=== PATIENT | male | born 1945 | race African-American/Black ===

== ENCOUNTER 2016-06-10 15:16 | Inpatient (IN) | payer OTHER ==
[2016-06-10 17:00] VITALS: BMI 22.3
--- NOTE | 2016-06-10 17:52 | HP ---
[id number] 4d 3 Anxiety: 4-Mod. Anxious/Guarded Agitation: 4-Moderately Restless Paroxysmal Sweats: 1-Minimal Palms Moist Orientation: 3-Disoriented Date>2 days Tacttile Disturbances: 0-None Auditory Disturbances: 0-None Visual Disturbances: 0-None Headache: 0-None Present CIWA-Ar Total Score: 16 Admission ROS S - HPI Chief Complaint: withdrawal sx Allergies/Adverse Reactions: Allergies Allergy/AdvReac Type Severity Reaction Status Date / Time No Known Allergies Allergy Verified 06/10/16 18:45 History of Present Illness: 70 years old male with long history of alcohol dependence, has hypertension denies mental illness is admitted to detox Exam Limitations: No Limitations - Ebola screening Have you traveled outside of the country in the last 21 days: No Have you had contact with anyone from an Ebola affected area: No Have you been sick,other than usual withdrawal symptoms: No Do you have a fever: No - Review of Systems Constitutional: Chills, Loss of Appetite, Changes in sleep, Unintentional Wgt. Loss EENT: reports: Dental Problems (upper full denture), Other (eye glasses) Respiratory: reports: No Symptoms reported Cardiac: reports: No Symptoms Reported GI: reports: Poor Appetite, Poor Fluid Intake, Indigestion, Abdominal cramping : reports: No Symptoms Reported Musculoskeletal: reports: Back Pain, Joint Pain, Muscle Pain, Neck Pain Integumentary: reports: Dryness Neuro: reports: Seizure (last episode "long time ago"), Tremors Endocrine: reports: No Symptoms Reported Hematology: reports: No Symptoms Reported Psychiatric: reports: Judgement Intact, Depressed Other Systems: Reviewed and Negative Patient History - Patient Medical History Hx Anemia: Yes (IN THE PAST) Hx Asthma: No Hx Chronic Obstructive Pulmonary Disease (COPD): No Hx Cancer: No Hx Cardiac Disorders: Yes (cardiac catheterization;Hx heart murmur) Hx Congestive Heart Failure: No Hx Hypertension: Yes (ON MEDS BUT NONCOMPLIANT. DID NOT PICK IT UP FROM PHARMACY.) Hx Hypercholesterolemia: No Hx Pacemaker: No HX Cerebrovascular Accident: No Hx Seizures: Yes (alcohol related-last episode was a year ago) Hx Dementia: Yes (viviana 0.308) Hx Diabetes: No Hx Gastrointestinal Disorders: Yes (GERD) Hx Liver Disease: Yes (cirrhosis,hepatitis c,ca of liver s/p partial hepatectomy ) Hx Genitourinary Disorders: No Hx Sexually Transmitted Disorders: Yes (gonorrhea) Hx Renal Disease (ESRD): No Hx Thyroid Disease: No Hx Human Immunodeficiency Virus (HIV): No (NEGATIVE HX) Hx Hepatitis C: Yes (NOT TREATED) Hx Depression: Yes Hx Suicide Attempt: No (DENIES) Hx Bipolar Disorder: No Hx Schizophrenia: No - Patient Surgical History Past Surgical History: Yes Hx Neurologic Surgery: No Hx Cataract Extraction: No Hx Cardiac Surgery: No Hx Lung Surgery: No Hx Breast Surgery: No Hx Breast Biopsy: No Hx Abdominal Surgery: Yes (partial hepatectomy in 2008) Hx Appendectomy: No Hx Cholecystectomy: No Hx Genitourinary Surgery: No Hx Orthopedic Surgery: No Other Surgical History: liver biopsy in 2009/umbilical hernia repair Anesthesia Reaction: No - PPD History Previous Implant?: Yes Documented Results: Negative w/proof Implanted On Prior [facility] [place]mission?: Yes Date: 01/18/16 Results: 0 mm PPD to be Administered?: No - Smoking Cessation Smoking history: Former smoker Have you smoked in the past 12 months: No Aproximately how many cigarettes per day: 0 If you are a former smoker, when did you quit?: 1985 Hx Chewing Tobacco Use: No Initiated information on smoking cessation: No - Substance & Tx. History Hx Alcohol Use: Yes Hx Substance Use: No Substance Use Type: Alcohol Hx Substance Use Treatment: Yes - Substances Abused Alcohol Route: Oral Frequency: Daily Amount used: 4 pints volka Age of first use: 17 Date of Last Use: 06/10/16 Family Disease History - Family Disease History Family Disease History: Heart Disease: Father Admission Physical Exam [facility] - Vital Signs Vital Signs: Vital Signs - 24 hr 06/10/16 16:57 Temperature 97.5 F L Pulse Rate 82 Respiratory 18 Rate Blood Pressure 125/73 - Physical General Appearance: Yes: Appropriately Dressed, Moderate Distress, Alcohol on Breath, Thin, Tremorous, Irritable, Sweating, Anxious HEENTM: Yes: Hearing grossly Normal, Normal ENT Inspection, Normocephalic, Normal Voice Respiratory: Yes: Chest Non-Tender, Lungs Clear, Normal Breath Sounds, No Respiratory Distress, No Accessory Muscle Use Neck: Yes: Supple, Trachea in good position Breast: Yes: Breasts Symetrical Cardiology: Yes: Regular Rhythm, Regular Rate, S1, S2, Murmur Abdominal: Yes: Non Tender, Soft Genitourinary: Yes: Within Normal Limits Back: Yes: Normal Inspection Musculoskeletal: Yes: full range of Motion, Gait Steady Extremities: Yes: Normal Range of Motion, Non-Tender, Tremors Neurological: Yes: Alert, Motor Strength 5/5, Normal Response, Depressed Affect Integumentary: Yes: Warm Lymphatic: Yes: Within Normal Limits - Diagnostic (1) Alcohol dependence with uncomplicated withdrawal Current Visit: Yes Status: Acute (2) GERD (gastroesophageal reflux disease) Current Visit: Yes Status: Acute Qualifiers: Esophagitis presence: without esophagitis Qualified Code(s): K21.9 - Gastro-esophageal reflux disease without esophagitis (3) HTN (hypertension) Current Visit: Yes Status: Acute Qualifiers: Hypertension type: essential hypertension Qualified Code(s): I10 - Essential (primary) hypertension (4) Hepatitis C carrier Current Visit: Yes Status: Chronic (5) liver cancer Current Visit: Yes Status: Resolved (6) Weight loss Current Visit: Yes Status: Acute (7) Poor dentition Current Visit: Yes Status: Chronic (8) Dry skin Current Visit: Yes Status: Acute Cleared for Admission [facility] - Detox or Rehab [facility] Level of Care: Medically Managed Detox Regimen/Protocol: Librium [facility] Breath Alcohol Content Breath Alcohol Content: 0.308 Urine Drug Screen - Results Drug Screen Negative: No Urine Drug Screen Results: THC-Marijuana
[2016-06-10] MEDS ORDERED: LOPERAMIDE HCL 2 MG CAPSULE PO PRN (18:01)
[2016-06-10] MEDS ORDERED: MAGNESIUM HYDROX 2400MG/30ML ORAL SUSPENSION 30 ML CUP PO PRN (18:01)
[2016-06-10] MEDS ORDERED: MAGNESIUM CITRATE 300 ML BOTTLE PO PRN (18:01)
[2016-06-10] MEDS ORDERED: P-EPHED 60MG/TRIPROLIDI 2.5MG TABLET PO PRN (18:01)
[2016-06-10] MEDS ORDERED: guaiFENesin/D-METHORPHAN HB 10 ML UNIT-DOSE CUPS PO PRN (18:01)
[2016-06-10] MEDS ORDERED: MENTHOL/PHENOL 1 EACH UD MM PRN (18:01)
[2016-06-10] MEDS ORDERED: hydrOXYzine PAMOATE 50 MG CAPSULE (FP) PO PRN (18:01)
[2016-06-10] MEDS ORDERED: MAG HYDROX/AL HYDROX/SIMETH 30 ML UNIT-DOSE CUP PO PRN (18:01)
[2016-06-10] MEDS ORDERED: COLLOIDAL OATMEAL 1 BAR EACH TP PRN (18:04)
[2016-06-10] MEDS ORDERED: chlordiazePOXIDE HCL 25 MG CAPSULE PO ONE (19:15)
[2016-06-10] MEDS: chlordiazePOXIDE HCL 25 MG CAPSULE PO SCH (22:35)
[2016-06-10] MEDS: THIAMINE HCL 100 MG TABLET (FP) PO SCH (22:35)
[2016-06-10] MEDS: RANITIDINE HCL 150 MG TABLET (FP) PO SCH (22:35)
[2016-06-10] MEDS: diphenhydrAMINE HCL 50 MG CAPSULE PO PRN (22:35)
[2016-06-10 22:37] LABS: URINE APPEARANCE CLEAR; URINE BILIRUBIN NEGATIVE (NEGATIVE); URINE COLOR YELLOW; URINE GLUCOSE (UA) NEGATIVE (NEGATIVE); URINE KETONE NEGATIVE (NEGATIVE); URINE LEUK ESTERASE NEGATIVE (NEGATIVE); URINE NITRITE NEGATIVE (NEGATIVE); URINE PROTEIN NEGATIVE (NEGATIVE); URINE UROBILINOGEN NEGATIVE E.U./dl (0.2-1.0)
[2016-06-10 22:39] LABS: URINE BLOOD 1+ (NEGATIVE)
[2016-06-10 22:40] LABS: URINE WBC 1 /hpf (3-5)
[2016-06-10] MEDS: MINERAL OIL/PETROLAT/WATER TOPICAL CREAM 454 GM JAR TP SCH (22:40)
[2016-06-11] MEDS: chlordiazePOXIDE HCL 25 MG CAPSULE PO SCH ×4 (06:13→22:43)
[2016-06-11] MEDS: PRENATAL VITAMINS W/ FOLIC ACID TABLET (FP) PO SCH (10:23)
[2016-06-11] MEDS: RANITIDINE HCL 150 MG TABLET (FP) PO SCH ×2 (10:23→22:43)
[2016-06-11 10:37] LABS: MCH 30.7 pg (25.7-33.7); MCHC 33.5 g/dl (32.0-35.9); MEAN CELL VOLUME 91.8 fl (80-96); MEAN PLT VOLUME 7.8 fl (7.5-11.1); PLATELET COUNT 212 K/MM3 (134-434); RDW 22.1 % (11.9-15.9); WHITE BLOOD COUNT 4.5 K/mm3 (4.0-10.0)
[2016-06-11 11:22] LABS: ALBUMIN 3.4 g/dl (3.4-5.0); ALK PHOS 164 U/L (45-117); ANION GAP 13 (8-16); CALCIUM 8.3 mg/dL (8.5-10.1); CO2 28 mmol/L (21-32); GLUCOSE,RANDOM 106 mg/dL (74-106); SGOT/AST 192 U/L (15-37); SGPT/ALT 57 U/L (12-78); TOT PROT 7.6 g/dl (6.4-8.2)
--- NOTE | 2016-06-11 11:30 | EKG ---
Test Reason : Blood Pressure : / mmHG Vent. Rate : 100 BPM Atrial Rate : 100 BPM P-R Int : 128 ms QRS Dur : 088 ms QT Int : 368 ms P-R-T Axes : 082 -02 263 degrees QTc Int : 474 ms SINUS RHYTHM WITH PREMATURE ATRIAL COMPLEXES MODERATE VOLTAGE CRITERIA FOR LVH, MAY BE NORMAL VARIANT PROLONGED QT ABNORMAL ECG WHEN COMPARED WITH ECG OF 10-JUN-2016 20:00, PREMATURE ATRIAL COMPLEXES ARE NOW PRESENT Confirmed by NANCY POOLE, SUPA ([id number]) on 06/11/2016 11:30:37 AM Referred By: Confirmed By:SUPA CRUZ MD
--- NOTE | 2016-06-11 11:42 | PN ---
S CIWA - CIWA Score Nausea/Vomitin Muscle Tremors: 4-Moderate,w/Arms Extend Anxiety: 4-Mod. Anxious/Guarded Agitation: 4-Moderately Restless Paroxysmal Sweats: 3 Orientation: 0-Oriented Tacttile Disturbances: 1-Very Mild Itch/Numbness Auditory Disturbances: 0-None Visual Disturbances: 0-None Headache: 1-Very Mild CIWA-Ar Total Score: 20 BHS Progress Note (SOAP) Subjective: nausea, sweats, interrupted sleep, anxiety, tremors Objective: 06/11/16 11:40 Vital Signs - 8 hr 06/11/16 06/11/16 06:38 09:34 Temperature 96.7 F L 95.8 F L Pulse Rate 72 75 Respiratory 18 18 Rate Blood Pressure 176/112 141/97 Laboratory Tests 06/10/16 06/11/16 06/11/16 21:30 07:00 07:00 WBC 4.5 RBC 3.91 L Hgb 12.0 Hct 35.9 MCV 91.8 MCHC 33.5 RDW 22.1 H D Plt Count 212 MPV 7.8 Sodium 136 Potassium 3.4 L Chloride 95 L Carbon Dioxide 28 Anion Gap 13 BUN 8 D Creatinine 1.0 Creat Clearance w eGFR > 60 Random Glucose 106 Calcium 8.3 L Total Bilirubin 1.0 AST 192 H ALT 57 Alkaline Phosphatase 164 H Total Protein 7.6 Albumin 3.4 D Urine Color Yellow Urine Appearance Clear Urine pH 6.0 Ur Specific [place] 1.005 Urine Protein Negative Urine Glucose (UA) Negative Urine Ketones Negative Urine Blood 1+ H Urine Nitrite Negative Urine Bilirubin Negative Urine Urobilinogen Negative Ur Leukocyte Esterase Negative Urine RBC None Urine WBC 1 hypokalemia, elevated bp Assessment: 06/11/16 11:41 withdrawal sx, hypokalemia Plan: cont detox, fluids, supplement k repeat chem
[2016-06-11 11:49] LABS: ANISOCYTOSIS 2+; HYPOCHROMIA 1+; MICROCYTOSIS 2+
--- NOTE | 2016-06-11 12:30 | EKG ---
Test Reason : Blood Pressure : / mmHG Vent. Rate : 078 BPM Atrial Rate : 078 BPM P-R Int : 136 ms QRS Dur : 100 ms QT Int : 458 ms P-R-T Axes : 073 -07 257 degrees QTc Int : 522 ms NORMAL SINUS RHYTHM WITH SINUS ARRHYTHMIA MODERATE VOLTAGE CRITERIA FOR LVH, MAY BE NORMAL VARIANT T WAVE ABNORMALITY, CONSIDER INFEROLATERAL ISCHEMIA PROLONGED QT ABNORMAL ECG WHEN COMPARED WITH ECG OF 07-FEB-2013 11:43, VENT. RATE HAS INCREASED BY 29 BPM T WAVE INVERSION NOW EVIDENT IN INFERIOR LEADS T WAVE INVERSION NOW EVIDENT IN ANTEROLATERAL LEADS QT HAS LENGTHENED Confirmed by NANCY POOLE, SUPA ([id number]) on 06/11/2016 12:30:01 PM Referred By: Confirmed By:SUPA CRUZ MD
--- NOTE | 2016-06-11 13:09 | CONSULT ---
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 Substance Abuse History: - Smoking Cessation. Smoking history: Former smoker. Have you smoked in the past 12 months: No. Aproximately how many cigarettes per day: 0. If you are a former smoker, when did you quit?: 1985. Hx Chewing Tobacco Use: No. Initiated information on smoking cessation: No. - Substance & Tx. History. Hx Alcohol Use: Yes. Hx Substance Use: No. Substance Use Type : Alcohol. Hx Substance Use Treatment: Yes. - Substances Abused. Alcohol. Route: Oral. Frequency: Daily. Amount used: 4 pints volka. Age of first use : 17. Date of Last Use: 06/10/16. Confirmed by patient. Medical History: Significant for GERD,hypertension,anemia,Ca of liver,hepatitis C,withdrawal seizures,umbilical herniorraphy and a history of past treatment for gonorrhea. Psychiatric History: Patient denies. Physical/Sexual Abuse/Trauma History: Patient denies. Additional Comment: Urine Drug Screen Results: THC-Marijuana.Noted. Mental Status Exam - Mental Status Exam Alert and Oriented to: Time, Place, Person Cognitive Function: Good Patient Appearance: Disheveled Mood: Hopeful Affect: Appropriate, Normal Range Patient Behavior: Fatigued, Appropriate, Cooperative Speech Pattern: Clear, Appropriate Voice Loudness: Normal Thought Process: Goal Oriented Thought Disorder: Not Present Hallucinations: Denies Suicidal Ideation: Denies Homicidal Ideation: Denies Insight/Judgement: Fair Sleep: Fair Appetite: Good Muscle strength/Tone: Normal Gait/Station: Normal Psychiatric Findings - Problem List ([place] 1, 2,3) (1) Alcohol dependence with uncomplicated withdrawal Current Visit: Yes Status: Acute (2) GERD (gastroesophageal reflux disease) Current Visit: Yes Status: Chronic Qualifiers: Esophagitis presence: without esophagitis Qualified Code(s): K21.9 - Gastro-esophageal reflux disease without esophagitis (3) HTN (hypertension) Current Visit: Yes Status: Chronic Qualifiers: Hypertension type: essential hypertension Qualified Code(s): I10 - Essential (primary) hypertension (4) Hepatitis C carrier Current Visit: Yes Status: Chronic (5) liver cancer Current Visit: Yes Status: Resolved (6) s/p umbilical herniorrhaphy Current Visit: No Status: Chronic (7) Seizure disorder Current Visit: No Status: Chronic (8) Cannabis dependence, uncomplicated Current Visit: Yes Status: Acute (9) Cirrhosis of liver Current Visit: Yes Status: Chronic (10) History of anemia Current Visit: Yes Status: Suspected - Initial Treatment Plan Initial Treatment Plan: Psychoeducation.Detoxification.Observation.
[2016-06-11] MEDS: POTASSIUM CHLORIDE TABS 20 MEQ TABLET.ER (FP) PO SCH ×2 (13:38→22:43)
[2016-06-11] MEDS: METOPROLOL SUCCINATE 25 MG TAB.SR.24H (FP) PO SCH (14:01)
[2016-06-11] MEDS: ENALAPRIL MALEATE 2.5 MG TABLET (FP) PO SCH (14:01)
[2016-06-11] MEDS: chlordiazePOXIDE HCL 25 MG CAPSULE PO PRN (14:21)
[2016-06-11] MEDS: ACETAMINOPHEN 325 MG TABLET (FP) PO PRN (14:22)
[2016-06-11] MEDS: THIAMINE HCL 100 MG TABLET (FP) PO SCH (22:43)
[2016-06-11] MEDS: diphenhydrAMINE HCL 50 MG CAPSULE PO PRN (22:44)
[2016-06-11] MEDS: MINERAL OIL/PETROLAT/WATER TOPICAL CREAM 454 GM JAR TP SCH (22:56)
[2016-06-12] MEDS: chlordiazePOXIDE HCL 25 MG CAPSULE PO SCH ×3 (05:53→17:40)
[2016-06-12 10:14] LABS: ALBUMIN 3.1 g/dl (3.4-5.0); ANION GAP 9 (8-16); CALCIUM 8.2 mg/dL (8.5-10.1); CO2 30 mmol/L (21-32); GLUCOSE,RANDOM 80 mg/dL (74-106)
[2016-06-12 10:19] LABS: ALK PHOS 148 U/L (45-117); CREATININE 0.8 mg/dL (0.7-1.3); SGOT/AST 113 U/L (15-37); SGPT/ALT 41 U/L (12-78); TOT PROT 6.9 g/dl (6.4-8.2)
[2016-06-12] MEDS: PRENATAL VITAMINS W/ FOLIC ACID TABLET (FP) PO SCH (10:28)
[2016-06-12] MEDS: METOPROLOL SUCCINATE 25 MG TAB.SR.24H (FP) PO SCH (10:28)
[2016-06-12] MEDS: ENALAPRIL MALEATE 2.5 MG TABLET (FP) PO SCH (10:28)
[2016-06-12] MEDS: RANITIDINE HCL 150 MG TABLET (FP) PO SCH ×2 (10:28→22:29)
[2016-06-12] MEDS: POTASSIUM CHLORIDE TABS 20 MEQ TABLET.ER (FP) PO SCH ×2 (10:28→22:29)
--- NOTE | 2016-06-12 12:53 | PN ---
S CIWA - CIWA Score Nausea/Vomitin Muscle Tremors: 4-Moderate,w/Arms Extend Anxiety: 4-Mod. Anxious/Guarded Agitation: 4-Moderately Restless Paroxysmal Sweats: 3 Orientation: 0-Oriented Tacttile Disturbances: 1-Very Mild Itch/Numbness Auditory Disturbances: 0-None Visual Disturbances: 0-None Headache: 1-Very Mild CIWA-Ar Total Score: 20 BHS Progress Note (SOAP) Subjective: nasuea, sweats, interrupted sleep, anxiety, tremors Objective: 06/12/16 12:51 Vital Signs - 8 hr 06/12/16 06/12/16 06:35 10:11 Temperature 99.1 F 97.8 F Pulse Rate 80 98 H Respiratory 18 18 Rate Blood Pressure 154/96 125/92 Laboratory Tests 06/10/16 06/11/16 06/11/16 21:30 07:00 07:00 WBC 4.5 RBC 3.91 L Hgb 12.0 Hct 35.9 MCV 91.8 MCHC 33.5 RDW 22.1 H D Plt Count 212 MPV 7.8 Hypochromic-Microcytic 1+ Anisocytosis 2+ Microcytosis 2+ Sodium 136 Potassium 3.4 L Chloride 95 L Carbon Dioxide 28 Anion Gap 13 BUN 8 D Creatinine 1.0 Creat Clearance w eGFR > 60 Random Glucose 106 Calcium 8.3 L Total Bilirubin 1.0 AST 192 H ALT 57 Alkaline Phosphatase 164 H Total Protein 7.6 Albumin 3.4 D Urine Color Yellow Urine Appearance Clear Urine pH 6.0 Ur Specific [place] 1.005 Urine Protein Negative Urine Glucose (UA) Negative Urine Ketones Negative Urine Blood 1+ H Urine Nitrite Negative Urine Bilirubin Negative Urine Urobilinogen Negative Ur Leukocyte Esterase Negative Urine RBC None Urine WBC 1 RPR Titer 06/11/16 06/12/16 07:00 07:15 WBC RBC Hgb Hct MCV MCHC RDW Plt Count MPV Hypochromic-Microcytic Anisocytosis Microcytosis Sodium 133 L Potassium 4.0 Chloride 94 L Carbon Dioxide 30 Anion Gap 9 BUN 9 Creatinine 0.8 Creat Clearance w eGFR > 60 Random Glucose 80 D Calcium 8.2 L Total Bilirubin 2.0 H D AST 113 H D ALT 41 D Alkaline Phosphatase 148 H Total Protein 6.9 Albumin 3.1 L Urine Color Urine Appearance Urine pH Ur Specific [place] Urine Protein Urine Glucose (UA) Urine Ketones Urine Blood Urine Nitrite Urine Bilirubin Urine Urobilinogen Ur Leukocyte Esterase Urine RBC Urine WBC RPR Titer Nonreactive Assessment: 06/12/16 12:51 withdrawal sx, hypokalemia, hypoalbuminemia from malnutrition 2/2 drug use Plan: cont detox, encoruage lufid, dietary advice given regarding healthy eating, supplement k, recheck labs
[2016-06-12] MEDS: chlordiazePOXIDE HCL 25 MG CAPSULE PO PRN (19:59)
[2016-06-12] MEDS: ACETAMINOPHEN 325 MG TABLET (FP) PO PRN (20:00)
[2016-06-12] MEDS ORDERED: ENALAPRIL MALEATE 5 MG TABLET (FP) PO SCH (22:00)
[2016-06-12] MEDS: chlordiazePOXIDE 5 MG CAPSULE PO SCH (22:29)
[2016-06-12] MEDS: THIAMINE HCL 100 MG TABLET (FP) PO SCH (22:29)
[2016-06-12] MEDS: diphenhydrAMINE HCL 50 MG CAPSULE PO PRN (22:29)
[2016-06-12] MEDS: MINERAL OIL/PETROLAT/WATER TOPICAL CREAM 454 GM JAR TP SCH (22:32)
[2016-06-13] MEDS: chlordiazePOXIDE 5 MG CAPSULE PO SCH ×3 (05:54→17:25)
[2016-06-13] MEDS: ENALAPRIL MALEATE 2.5 MG TABLET (FP) PO SCH (10:33)
[2016-06-13] MEDS: RANITIDINE HCL 150 MG TABLET (FP) PO SCH ×2 (10:33→22:31)
[2016-06-13] MEDS: PRENATAL VITAMINS W/ FOLIC ACID TABLET (FP) PO SCH (10:33)
[2016-06-13] MEDS: POTASSIUM CHLORIDE TABS 20 MEQ TABLET.ER (FP) PO SCH ×2 (10:33→22:31)
[2016-06-13] MEDS: METOPROLOL SUCCINATE 25 MG TAB.SR.24H (FP) PO SCH (10:33)
--- NOTE | 2016-06-13 11:42 | PN ---
BHS Progress Note (SOAP) Subjective: nausea, sweats, interrupted sleep, anxiety, tremors Objective: 06/13/16 11:41 Vital Signs - 8 hr 06/13/16 06/13/16 06:30 10:02 Temperature 98.9 F 95.6 F L Pulse Rate 86 92 H Respiratory 18 18 Rate Blood Pressure 151/103 133/84 Laboratory Tests 06/10/16 06/11/16 06/11/16 21:30 07:00 07:00 WBC 4.5 RBC 3.91 L Hgb 12.0 Hct 35.9 MCV 91.8 MCHC 33.5 RDW 22.1 H D Plt Count 212 MPV 7.8 Hypochromic-Microcytic 1+ Anisocytosis 2+ Microcytosis 2+ Sodium 136 Potassium 3.4 L Chloride 95 L Carbon Dioxide 28 Anion Gap 13 BUN 8 D Creatinine 1.0 Creat Clearance w eGFR > 60 Random Glucose 106 Calcium 8.3 L Total Bilirubin 1.0 AST 192 H ALT 57 Alkaline Phosphatase 164 H Total Protein 7.6 Albumin 3.4 D Urine Color Yellow Urine Appearance Clear Urine pH 6.0 Ur Specific [place] 1.005 Urine Protein Negative Urine Glucose (UA) Negative Urine Ketones Negative Urine Blood 1+ H Urine Nitrite Negative Urine Bilirubin Negative Urine Urobilinogen Negative Ur Leukocyte Esterase Negative Urine RBC None Urine WBC 1 RPR Titer 06/11/16 06/12/16 07:00 07:15 WBC RBC Hgb Hct MCV MCHC RDW Plt Count MPV Hypochromic-Microcytic Anisocytosis Microcytosis Sodium 133 L Potassium 4.0 Chloride 94 L Carbon Dioxide 30 Anion Gap 9 BUN 9 Creatinine 0.8 Creat Clearance w eGFR > 60 Random Glucose 80 D Calcium 8.2 L Total Bilirubin 2.0 H D AST 113 H D ALT 41 D Alkaline Phosphatase 148 H Total Protein 6.9 Albumin 3.1 L Urine Color Urine Appearance Urine pH Ur Specific [place] Urine Protein Urine Glucose (UA) Urine Ketones Urine Blood Urine Nitrite Urine Bilirubin Urine Urobilinogen Ur Leukocyte Esterase Urine RBC Urine WBC RPR Titer Nonreactive hypoalbuminemia Assessment: 06/13/16 11:41 withdrawaql sx, hypoalbuminemia/malnutirion 2/2 substance use Plan: cont detox, dietary advice given, food supplements ordered
[2016-06-13] MEDS: ACETAMINOPHEN 325 MG TABLET (FP) PO PRN (20:08)
[2016-06-13] MEDS: THIAMINE HCL 100 MG TABLET (FP) PO SCH (22:31)
[2016-06-13] MEDS: MINERAL OIL/PETROLAT/WATER TOPICAL CREAM 454 GM JAR TP SCH (22:31)
[2016-06-13] MEDS: diphenhydrAMINE HCL 50 MG CAPSULE PO PRN (22:32)
[2016-06-13] MEDS: chlordiazePOXIDE HCL 10 MG CAPSULE PO SCH (22:32)
[2016-06-14] MEDS: chlordiazePOXIDE HCL 10 MG CAPSULE PO SCH ×2 (05:49→10:31)
[2016-06-14 06:09] VITALS: TEMP 98.9
--- NOTE | 2016-06-14 09:03 | DS ---
[facility] Detox Discharge Summary Admission Date: 06/10/16 Discharge Date: 06/14/16 - History Present History: Alcohol Dependence, Cannabis Dependence Pertinent Past History: Hypertension Cirrhosis Hep C GERD Hx of Liver Cancer Seizures secondary to ETOH withdrawal - Physical Exam Results Vital Signs: Vital Signs Temperature 98.9 F 06/14/16 06:07 Pulse Rate 84 06/14/16 06:07 Respiratory Rate 16 06/14/16 06:07 Blood Pressure 155/95 06/14/16 06:07 O2 Sat by Pulse Oximetry (%) Laboratory Last Values WBC 4.5 K/mm3 (4.0-10.0) 06/11/16 07:00 RBC 3.91 M/mm3 (4.00-5.60) L 06/11/16 07:00 Hgb 12.0 GM/dL (11.7-16.9) 06/11/16 07:00 Hct 35.9 % (35.4-49) 06/11/16 07:00 MCV 91.8 fl (80-96) 06/11/16 07:00 MCHC 33.5 g/dl (32.0-35.9) 06/11/16 07:00 RDW 22.1 % (11.9-15.9) H D 06/11/16 07:00 Plt Count 212 K/MM3 (134-434) 06/11/16 07:00 MPV 7.8 fl (7.5-11.1) 06/11/16 07:00 Hypochromic-Microcytic 1+ 06/11/16 07:00 Anisocytosis 2+ 06/11/16 07:00 Microcytosis 2+ 06/11/16 07:00 Sodium 133 mmol/L (136-145) L 06/12/16 07:15 Potassium 4.0 mmol/L (3.5-5.1) 06/12/16 07:15 Chloride 94 mmol/L (98-107) L 06/12/16 07:15 Carbon Dioxide 30 mmol/L (21-32) 06/12/16 07:15 Anion Gap 9 (8-16) 06/12/16 07:15 BUN 9 mg/dL (7-18) 06/12/16 07:15 Creatinine 0.8 mg/dL (0.7-1.3) 06/12/16 07:15 Creat Clearance w eGFR > 60 (>60) 06/12/16 07:15 Random Glucose 80 mg/dL (74-106) D 06/12/16 07:15 Calcium 8.2 mg/dL (8.5-10.1) L 06/12/16 07:15 Total Bilirubin 2.0 mg/dL (0.2-1.0) H D 06/12/16 07:15 AST 113 U/L (15-37) H D 06/12/16 07:15 ALT 41 U/L (12-78) D 06/12/16 07:15 Alkaline Phosphatase 148 U/L (45-117) H 06/12/16 07:15 Total Protein 6.9 g/dl (6.4-8.2) 06/12/16 07:15 Albumin 3.1 g/dl (3.4-5.0) L 06/12/16 07:15 Urine Color Yellow 06/10/16 21:30 Urine Appearance Clear 06/10/16 21:30 Urine pH 6.0 (5.0-8.0) 06/10/16 21:30 Ur Specific [place] 1.005 (1.001-1.035) 06/10/16 21:30 Urine Protein Negative (NEGATIVE) 06/10/16 21:30 Urine Glucose (UA) Negative (NEGATIVE) 06/10/16 21:30 Urine Ketones Negative (NEGATIVE) 06/10/16 21:30 Urine Blood 1+ (NEGATIVE) H 06/10/16 21:30 Urine Nitrite Negative (NEGATIVE) 06/10/16 21:30 Urine Bilirubin Negative (NEGATIVE) 06/10/16 21:30 Urine Urobilinogen Negative E.U./dl (0.2-1.0) 06/10/16 21:30 Ur Leukocyte Esterase Negative (NEGATIVE) 06/10/16 21:30 Urine RBC None /hpf (0-3) 06/10/16 21:30 Urine WBC 1 /hpf (3-5) 06/10/16 21:30 RPR Titer Nonreactive (NONREACTIVE) 06/11/16 07:00 labs noted Pertinent Admission Physical Exam Findings: Withdrawal Sx - Treatment Hospital Course: Detox Protocol Followed, Detoxed Safely, Responded well, Discharged Condition Good, Rehab Referral Accepted Patient has Accepted a Rehab Referral to: yes - Medication Discharge Medications: Ambulatory Orders Enalapril Maleate [Vasotec -] 2.5 mg PO DAILY #30 tablet 03/09/16 Metoprolol Succinate [Toprol XL -] 25 mg PO DAILY #30 tab.sr.24h 03/09/16 Potassium Chloride [K-Dur -] 20 meq PO DAILY #7 tablet.er 03/09/16 - Diagnosis (1) Alcohol dependence with uncomplicated withdrawal Current Visit: Yes Status: Acute (2) Cannabis dependence, uncomplicated Current Visit: Yes Status: Acute (3) Cirrhosis of liver Current Visit: Yes Status: Chronic (4) GERD (gastroesophageal reflux disease) Current Visit: Yes Status: Chronic Qualifiers: Esophagitis presence: without esophagitis Qualified Code(s): K21.9 - Gastro-esophageal reflux disease without esophagitis (5) HTN (hypertension) Current Visit: Yes Status: Chronic Qualifiers: Hypertension type: essential hypertension Qualified Code(s): I10 - Essential (primary) hypertension (6) Hepatitis C carrier Current Visit: Yes Status: Chronic (7) liver cancer Current Visit: Yes Status: Resolved - AMA Did Patient Leave Against Medical Advice: No
[2016-06-14] MEDS: ENALAPRIL MALEATE 2.5 MG TABLET (FP) PO SCH (10:30)
[2016-06-14] MEDS: METOPROLOL SUCCINATE 25 MG TAB.SR.24H (FP) PO SCH (10:30)
[2016-06-14] MEDS: POTASSIUM CHLORIDE TABS 20 MEQ TABLET.ER (FP) PO SCH (10:30)
[2016-06-14] MEDS: PRENATAL VITAMINS W/ FOLIC ACID TABLET (FP) PO SCH (10:30)
[2016-06-14] MEDS: RANITIDINE HCL 150 MG TABLET (FP) PO SCH (10:31)
[2016-06-14 10:46] VITALS: BP 153/90; PULSE 78
--- NOTE | 2016-06-14 14:56 | HP ---
MARISSA POOLE Rehab Assess/Revision - Admission History Admitted to Rehab from: [facility] Date of Admission to Rehab: 06/14/16 - Vital signs Vital Signs: Vital Signs Period Temp Pulse Resp BP Sys/Amador Pulse Ox Last 24 Hr 98.9 F-100.6 F 78-90 16-20 135-157/86-95 - Findings Detox History & Physical reviewed: Yes Concur with findings: Yes
== END 2016-06-14 14:37 | disposition home or self-care (01) | DRG 895 ==
LOC: YASAS 15:16 → Y3N 18:57 → Y3W 06-14 14:37 → Y3N 06-14 14:37 → UNDODISIN 06-14 15:35
PROVIDERS: ADMIT Internal Medicine; ATTEND Internal Medicine
PROC: HZ2ZZZZ Detoxification Services for Substance Abuse Treatment (ICD-10-PCS; principal; 2016-06-10)
PROC: HZ42ZZZ Group Counseling for Substance Abuse Treatment, Cognitive-Behavioral (ICD-10-PCS; 2016-06-14)
DX: F19.230 Other psychoactive substance dependence with withdrawal, uncomplicated (principal); E46 Unspecified protein-calorie malnutrition; F10.230 Alcohol dependence with withdrawal, uncomplicated; F12.20 Cannabis dependence, uncomplicated; K74.60 Unspecified cirrhosis of liver; L98.8 Other specified disorders of the skin and subcutaneous tissue; K21.9 Gastro-esophageal reflux disease without esophagitis; R01.1 Cardiac murmur, unspecified; I10 Essential (primary) hypertension; F03.90 Unspecified dementia, unspecified severity, without behavioral disturbance, psychotic disturbance, mood disturbance, and anxiety; B18.2 Chronic viral hepatitis C; Z85.05 Personal history of malignant neoplasm of liver; E88.09 Other disorders of plasma-protein metabolism, not elsewhere classified; Z68.22 Body mass index [BMI] 22.0-22.9, adult; E87.6 Hypokalemia; K08.9 Disorder of teeth and supporting structures, unspecified; Z87.438 Personal history of other diseases of male genital organs; Z86.69 Personal history of other diseases of the nervous system and sense organs; Z87.891 Personal history of nicotine dependence; Z86.2 Personal history of diseases of the blood and blood-forming organs and certain disorders involving the immune mechanism; Z91.14 Patient's other noncompliance with medication regimen
CPT/HCPCS: 36415; 80053; 81003; 81015; 85027; 86593; 93005; 93010